=== PATIENT | female | born 1980 | race Caucasian/White ===

== ENCOUNTER 2017-06-21 11:12 | Emergency (ER) | payer MEDICAID ==
[2017-06-21] MEDS: ACETAMINOPHEN 500 MG TAB PO (14:21)
[2017-06-21] MEDS: IBUPROFEN 600 MG TAB PO (14:21)
== END 2017-06-21 15:29 | disposition home or self-care (01) ==
LOC: FTE 11:12
DX: H66.91 Otitis media, unspecified, right ear (principal)
CPT/HCPCS: 99284; Z7502